=== PATIENT | male | born 1945 | race Caucasian/White ===

== ENCOUNTER 2021-10-25 15:41 | Inpatient (IN) ==
[2021-10-25] MEDS ORDERED: Acetaminophen 325 MG TABLET PO PRN (15:50)
[2021-10-25] MEDS: *HR* Heparin 5,000 UNIT/ML VIAL SQ SCH (18:51)
[2021-10-25] MEDS: Chlorhexidine Rinse 15 ML MOUTHWASH MM SCH (21:23)
[2021-10-25] MEDS: Sucralfate 1 GM TABLET PO SCH (21:23)
[2021-10-25] MEDS: traZODone 50 MG TABLET PO PRN (21:23)
[2021-10-25] MEDS: *HR* HYDROcodone/Acet 5/325 mg TABLET PO PRN (21:35)
[2021-10-26] MEDS: *HR* Heparin 5,000 UNIT/ML VIAL SQ SCH ×2 (06:39→17:45)
[2021-10-26 08:46] LABS: Basophils # 0.1 K/mcL (0.0-0.2); Basophils % 0.5 %; Eosinophils % 0.2 %; Hematocrit 34.9 % (37.5-50.1); Hemoglobin 11.1 g/dL (12.9-16.9); Immature Granulocytes % 3.2 % (0-4); Lymphocytes # 2.1 K/mcL (0.6-4.6); Lymphocytes % 19.5 %; Mean Corpuscular HGB Conc 31.8 g/dL (31.6-35.5); Mean Corpuscular Volume 100.6 fL (83.0-100.0); Mean Platelet Volume 9.4 fL (9.4-12.4); Monocytes # 1.1 K/mcL (0.0-1.3); Monocytes % 10.6 %; Neutrophils # 7.1 K/mcL (1.6-8.9); Platelet Count 441 K/mcL (140-400); Red Blood Count 3.47 M/mcL (4.19-5.50); Red Cell Distribution Width 13.5 % (11.5-14.5); White Blood Count 10.7 K/mcL (4.3-11.1)
[2021-10-26 08:56] LABS: INR 1.2; Prothrombin Time 13.9 Seconds (9.4-12.1)
[2021-10-26 09:02] LABS: BUN/Creatinine Ratio 30 (6-26); Blood Urea Nitrogen 28 mg/dL (8-23); Calcium 8.7 mg/dL (8.6-10.3); Carbon Dioxide 32 mEq/L (23-29); Chloride 97 mEq/L (98-107); Glucose 102 mg/dL (70-105); Osmolality,Calculated 288 (280-300); Sodium 136 mEq/L (136-145); eGFR For African Americans > 60 (> 60); eGFR For Non-African Americans > 60 (> 60)
[2021-10-26] MEDS: Chlorhexidine Rinse 15 ML MOUTHWASH MM SCH ×2 (10:35→22:05)
[2021-10-26] MEDS: Multivit/Ca/Min/Fe/FA 1 TAB TABLET PO SCH (10:35)
[2021-10-26] MEDS: Ipratropium/Albuterol Neb 3 ML IH PRN (16:52)
[2021-10-26] MEDS: Sucralfate 1 GM TABLET PO SCH (22:05)
[2021-10-26] MEDS: *HR* HYDROcodone/Acet 5/325 mg TABLET PO PRN (22:05)
[2021-10-26] MEDS: traZODone 50 MG TABLET PO PRN (22:05)
[2021-10-27] MEDS: *HR* Heparin 5,000 UNIT/ML VIAL SQ SCH ×2 (07:00→17:44)
[2021-10-27] MEDS: Multivit/Ca/Min/Fe/FA 1 TAB TABLET PO SCH (07:34)
[2021-10-27] MEDS: Chlorhexidine Rinse 15 ML MOUTHWASH MM SCH ×2 (07:34→21:47)
[2021-10-27] MEDS: Ipratropium/Albuterol Neb 3 ML IH PRN ×2 (08:16→22:53)
[2021-10-27] MEDS: *HR* HYDROcodone/Acet 5/325 mg TABLET PO PRN ×2 (17:52→23:48)
[2021-10-27] MEDS: traZODone 50 MG TABLET PO PRN (21:47)
[2021-10-27] MEDS: Sucralfate 1 GM TABLET PO SCH (21:48)
[2021-10-27] MEDS: Ondansetron ODT 4 MG TAB.RAPDIS SL PRN (23:47)
[2021-10-28] MEDS: Benzonatate 100 MG CAPSULE PO PRN ×2 (00:02→21:09)
[2021-10-28] MEDS: Ipratropium/Albuterol Neb 3 ML IH SCH ×6 (04:23→22:15)
[2021-10-28] MEDS: *HR* Heparin 5,000 UNIT/ML VIAL SQ SCH ×2 (06:23→18:25)
[2021-10-28] MEDS: Budesonide/Formoterol 160/4.5 1 PUFF INH IH SCH ×2 (09:02→22:15)
[2021-10-28] MEDS: Multivit/Ca/Min/Fe/FA 1 TAB TABLET PO SCH (09:12)
[2021-10-28] MEDS: Chlorhexidine Rinse 15 ML MOUTHWASH MM SCH ×2 (09:12→21:09)
[2021-10-28] MEDS: Sucralfate 1 GM TABLET PO SCH (21:09)
[2021-10-28] MEDS: traZODone 50 MG TABLET PO PRN (21:19)
[2021-10-28] MEDS: *HR* HYDROcodone/Acet 5/325 mg TABLET PO PRN (23:09)
[2021-10-29] MEDS: Ipratropium/Albuterol Neb 3 ML IH SCH ×4 (03:57→21:50)
[2021-10-29] MEDS: *HR* Heparin 5,000 UNIT/ML VIAL SQ SCH ×2 (06:39→17:39)
[2021-10-29] MEDS: Chlorhexidine Rinse 15 ML MOUTHWASH MM SCH (08:44)
[2021-10-29] MEDS: Multivit/Ca/Min/Fe/FA 1 TAB TABLET PO SCH (08:47)
[2021-10-29] MEDS: Budesonide/Formoterol 160/4.5 1 PUFF INH IH SCH ×2 (09:10→21:50)
[2021-10-29] MEDS: Magic Mouthwash 10 ML UD Cup PO SCH ×2 (13:02→17:39)
[2021-10-29] MEDS: *HR* HYDROcodone/Acet 5/325 mg TABLET PO PRN (21:02)
[2021-10-29] MEDS: Benzonatate 100 MG CAPSULE PO PRN (21:02)
[2021-10-29] MEDS: traZODone 50 MG TABLET PO PRN (21:02)
[2021-10-29] MEDS: Sucralfate 1 GM TABLET PO SCH (21:05)
[2021-10-30] MEDS: Ipratropium/Albuterol Neb 3 ML IH SCH ×4 (05:05→21:32)
[2021-10-30] MEDS: *HR* Heparin 5,000 UNIT/ML VIAL SQ SCH ×2 (05:26→17:14)
[2021-10-30 05:57] LABS: Hematocrit 32.2 % (37.5-50.1); Hemoglobin 10.1 g/dL (12.9-16.9); Mean Corpuscular HGB Conc 31.4 g/dL (31.6-35.5); Mean Corpuscular Volume 101.9 fL (83.0-100.0); Mean Platelet Volume 9.8 fL (9.4-12.4); Platelet Count 428 K/mcL (140-400); Red Blood Count 3.16 M/mcL (4.19-5.50); Red Cell Distribution Width 14.1 % (11.5-14.5); White Blood Count 13.4 K/mcL (4.3-11.1)
[2021-10-30] MEDS: Magic Mouthwash 10 ML UD Cup PO SCH ×3 (06:53→17:15)
[2021-10-30 07:54] LABS: BUN/Creatinine Ratio 27 (6-26); Blood Urea Nitrogen 24 mg/dL (8-23); Calcium 8.4 mg/dL (8.6-10.3); Carbon Dioxide 22 mEq/L (23-29); Chloride 102 mEq/L (98-107); Glucose 115 mg/dL (70-105); Osmolality,Calculated 289 (280-300); Potassium 3.6 mEq/L (3.5-5.1); Sodium 137 mEq/L (136-145); eGFR For African Americans > 60 (> 60); eGFR For Non-African Americans > 60 (> 60)
[2021-10-30] MEDS: Multivit/Ca/Min/Fe/FA 1 TAB TABLET PO SCH (09:16)
[2021-10-30] MEDS: Budesonide/Formoterol 160/4.5 1 PUFF INH IH SCH ×2 (09:42→21:32)
[2021-10-30] MEDS: Sucralfate 1 GM TABLET PO SCH (21:05)
[2021-10-31] MEDS: Ipratropium/Albuterol Neb 3 ML IH SCH ×4 (04:45→22:46)
[2021-10-31] MEDS: *HR* Heparin 5,000 UNIT/ML VIAL SQ SCH ×2 (05:26→18:04)
[2021-10-31] MEDS: Ondansetron ODT 4 MG TAB.RAPDIS SL PRN (08:48)
[2021-10-31] MEDS: *HR* HYDROcodone/Acet 5/325 mg TABLET PO PRN ×2 (08:49→18:03)
[2021-10-31] MEDS: Multivit/Ca/Min/Fe/FA 1 TAB TABLET PO SCH (08:49)
[2021-10-31] MEDS: Magic Mouthwash 10 ML UD Cup PO SCH ×3 (08:50→18:04)
[2021-10-31] MEDS: Budesonide/Formoterol 160/4.5 1 PUFF INH IH SCH ×2 (11:05→22:45)
[2021-10-31] MEDS: Sucralfate 1 GM TABLET PO SCH (20:38)
[2021-11-01] MEDS: Ipratropium/Albuterol Neb 3 ML IH SCH ×4 (04:40→21:31)
[2021-11-01] MEDS: *HR* Heparin 5,000 UNIT/ML VIAL SQ SCH ×2 (05:35→17:55)
[2021-11-01] MEDS: *HR* HYDROcodone/Acet 5/325 mg TABLET PO PRN ×2 (10:04→20:10)
[2021-11-01] MEDS: Multivit/Ca/Min/Fe/FA 1 TAB TABLET PO SCH (10:04)
[2021-11-01] MEDS: Magic Mouthwash 10 ML UD Cup PO SCH ×3 (10:04→17:55)
[2021-11-01] MEDS: Budesonide/Formoterol 160/4.5 1 PUFF INH IH SCH ×2 (10:50→21:31)
[2021-11-01] MEDS: Sucralfate 1 GM TABLET PO SCH (20:10)
[2021-11-01] MEDS: Ondansetron ODT 4 MG TAB.RAPDIS SL PRN (20:10)
[2021-11-01] MEDS: traZODone 50 MG TABLET PO PRN (20:10)
[2021-11-02] MEDS: Ipratropium/Albuterol Neb 3 ML IH SCH ×2 (05:08→09:20)
[2021-11-02] MEDS: *HR* Heparin 5,000 UNIT/ML VIAL SQ SCH (06:15)
[2021-11-02] MEDS: Magic Mouthwash 10 ML UD Cup PO SCH ×2 (06:15→12:54)
[2021-11-02] MEDS: Multivit/Ca/Min/Fe/FA 1 TAB TABLET PO SCH (09:02)
[2021-11-02] MEDS: Budesonide/Formoterol 160/4.5 1 PUFF INH IH SCH (09:20)
[2021-11-02 09:22] VITALS: RESP 18; O2SAT 94
[2021-11-02 11:48] VITALS: BP 126/76; PULSE 69; TEMP 98.2
== END 2021-11-02 13:05 | disposition home health service (06) | DRG 843 ==
LOC: INPPIK 17:56
PROVIDERS: ADMIT Family Medicine; ATTEND Family Medicine